=== PATIENT | female | born 1995 | race Hispanic/Latino ===

== ENCOUNTER 2016-11-26 16:12 | Emergency (ER) ==
--- NOTE | 2016-11-26 17:18 | PROVIDER DOCUMENTATION ---
HPI-Female /OB/Breast - General Source: reports: patient - History of Present Illness-Female /OB Location of complaint: reports: suprapubic Radiation: reports: none Quality of Pain: reports: cramping Severity in ED: reports: mild Onset/Duration: reports: 2 days ago Timing: reports: still present, intermittent Context/Activities at Onset: reports: light activity Vaginal Symptoms: reports: no symptoms Vaginal Bleeding Amount: None Urinary Symptoms: reports: dysuria, frequency. denies: low back pain Related Symptoms: reports: no symptoms Leakage of Fluid: none Sexual intercourse history: reports: Single Partner Contraception: reports: none Modifying Factors: improves with: nothing Associated Symptoms: denies: anxiety, back/neck pain, chest pain, cough, fatigue , fever/chills, loss of appetite, nausea, swelling/mass in abdomen, vomiting, weakness, trouble walking Similar Symptoms Previously?: Yes Recently seen or treated by another doctor?: No <Ammy Shelby - Last Filed: 11/26/16 17:53> <Kaiser Anna - Last Filed: 11/26/16 19:18> - General Chief Complaint: UTI Symptoms Stated Complaint: 2 MONTHS PREG/ABD PAIN/BLEEDING Time Seen by Provider: 11/26/16 17:09 Allergies/Adverse Reactions: Patient Allergies Allergy/AdvReac Type Severity Reaction Status Date / Time No Known Allergies Allergy Verified 04/19/16 14:35 - History of Present Illness-Female /OB Nature of Presenting Problem: Pt is 21 y/o F presents to the ED with lower abdominal pain. Pt states she is 8 weeks . Pt denies bleeding. Pt is A1. Pt states having dysuria. Pt states dysuria has been present for 2 days. (Ammy Shelby) Review of Systems - Adult - REVIEW OF SYSTEMS - ADULT Constitutional: denies: chills, fever Eyes: denies: blurred vision, double vision Ears, Nose, Mouth & Throat: denies: ear pain, nose pain, throat pain Cardiovascular: denies: chest pain, heart murmur, irregular heart rate Respiratory: denies: cough, shortness of breath, wheezing Gastrointestinal: reports: abdominal pain. denies: diarrhea, nausea, vomiting Genitourinary: reports: dysuria, frequency Musculoskeletal: denies: bone pain, joint pain, neck pain Integumentary: denies: hives, itching Neurological: denies: dizziness/vertigo, headache/migraines Psychiatric: reports: no symptoms reported Endocrine: reports: no symptoms reported Hematologic/Lymphatic: reports: no symptoms reported Allergic/Immunologic: reports: no symptoms reported All Other Systems: Reviewed and Negative <Debra Shelbyomi - Last Filed: 11/26/16 17:53> Past History - Adult - PAST MEDICAL HISTORY-ADULT Review of Records: reports: Nursing Assessment Review, Medications Reviewed, Social history reviewed & non-contributory. Major Childhood Illnesses: reports: denies history Cardiovascular: reports: denies history Respiratory: reports: denies history Gastrointestinal: reports: denies history Obstetrical/Gynecological: reports: denies history Genitourinary: reports: denies history Musculoskeletal: reports: denies history Neurological: reports: denies history Endocrine/Immune: reports: anemia Other Conditions: reports: denies history - PRIOR SURGERIES/PROCEDURES Surgical/Procedure History: reports: reviewed, not pertinent - IMMUNIZATION STATUS Childhood Immunizations: See Nurse Assessment Flu Vaccine: See Nurse Assessment - FAMILY HISTORY Family History: reviewed, not pertinent - SOCIAL HISTORY Smoking: denies Substance Use: denies Living Situation: family <Debra Shelbyomi - Last Filed: 11/26/16 17:53> Physical Exam-General - PHYSICAL EXAM-ADULT Initial Vital Signs Reviewed: Yes - CONSTITUTIONAL General Appearance: appears well, alert, no apparent distress - EYES Eyes: PERRL/EOMI, pink conjunctivae - HEAD, EARS, NOSE, MOUTH & THROAT HENMT: normocephalic/atraumatic, moist mucous membranes, normal ENT inspection - NECK Neck: non-tender, full range of motion, supple, normal inspection - RESPIRATORY Respiratory: chest non-tender, lungs clear, normal breath sounds - CARDIOVASCULAR Cardiovascular: normal peripheral pulses, regular rate, rhythm, no edema - GASTROINTESTINAL (ABDOMEN) Abdominal Exam: normal bowel sounds, soft, tenderness (suprapubic) - LYMPHATIC Lymphatic: no adenopathy - MUSCULOSKELETAL Back Exam: normal inspection, no CVA tenderness, no vertebral tenderness Extremity: normal range of motion, non-tender, normal gait - SKIN Integumentary: normal color, normal turgor, warm/dry - NEUROLOGIC Neurologic: 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 Harris Time of Transfer: 17:53 Items Pending: Labs, Ultrasound Results <Ammy Shelby - Last Filed: 11/26/16 17:53> - REASSESSMENT Reassessment #1 Time Reassessed: 18:17 Status: unchanged Reassessment Comment: Pain suprapubic and head still hurt - ULTRASOUND (By Radiology) 1 US Study: Abdomen Impression: Abnormal US Results: possible subchorionic hemorrhage - CONSULTS/PCP/HOSPITALIST Notification #1 *Consult/PCP/Hospitalist*: [place] Time Discussed: 19:14 Reason/Comments: Treatment Consult Disposition: other <Kaiser Anna - Last Filed: 11/26/16 19:18> - PLAN OF CARE/RESULTS Progress/Plan/Lab Results: Orders Category Date Time Status US OBS COMPLETE < 14 WKS [US] Stat Exams 11/26/16 17:20 Ordered BETA SUBUNIT HCG [BEGUM] Stat Lab 11/26/16 17:24 Ordered CBC WITH ELECTRONIC DIFF [HEME] Stat Lab 11/26/16 17:18 Uncollected COMPREHENSIVE METABOLIC PANEL [CHEM] Stat Lab 11/26/16 17:18 Ordered TYPE & SCREEN [BBK] Stat Lab 11/26/16 17:[address] W/POSS RFLX CULT [URINALYSIS] Stat Lab 11/26/16 17:18 Uncollected Vital Signs - 24 hr 11/26/16 16:33 Temperature 98 F Pulse Rate 72 Respiratory 18 Rate Blood Pressure 84/52 O2 Sat by Pulse 100 Oximetry (Ammy Shelby) Orders Category Date Time Status US OBS COMPLETE < 14 WKS [US] Stat Exams 11/26/16 17:20 Taken BETA SUBUNIT HCG [BEGUM] Stat Lab 11/26/16 17:48 Received CBC WITH ELECTRONIC DIFF [HEME] Stat Lab 11/26/16 17:50 Completed COMPREHENSIVE METABOLIC PANEL [CHEM] Stat Lab 11/26/16 17:48 Completed TYPE & SCREEN [BBK] Stat Lab 11/26/16 17:[address] W/POSS RFLX CULT [URINALYSIS] Stat Lab 11/26/16 16:35 Completed Vital Signs Temp Pulse Resp BP Pulse Ox 11/26/16 16:33 98 F 72 18 84/52 100 No Known Allergies Allergy (Verified 04/19/16 14:35) Laboratory 11/26/16 11/26/16 11/26/16 17:50 17:48 17:48 WBC 7.78 RBC 4.04 L Hgb 11.9 L Hct 35.3 L MCV 87.4 MCH 29.5 MCHC 33.7 RDW Std Deviation 14.3 Plt Count 263 MPV 10.4 Immature Gran % (Auto) 0.1 Neut % (Auto) 66.3 Lymph % (Auto) 25.2 Cannon % (Auto) 7.5 Eos % (Auto) 0.6 Baso % (Auto) 0.3 Immature Gran # (Auto) 0.01 Neut # (Auto) 5.16 Lymph # (Auto) 1.96 Cannon # (Auto) 0.58 Eos # (Auto) 0.05 Baso # (Auto) 0.02 Sodium 132 L Potassium 3.5 Chloride 102 Carbon Dioxide 21 L Anion Gap 9 BUN 6 L Creatinine 0.3 L Estimated GFR/1.73 m2 > 60 BUN/Creatinine Ratio 20 Glucose 89 Calculated Osmolality 262 Calcium 9.4 Total Bilirubin 0.20 AST 12 ALT 7 L Alkaline Phosphatase 53 Total Protein 7.0 Albumin 3.9 Globulin 3.0 Albumin/Globulin Ratio 1.0 Urine Source Urine Color Urine Clarity Urine pH Ur Specific [place] Urine Protein Urine Ketones Urine Blood Urine Nitrite Urine Bilirubin Urine Urobilinogen Urine Microscopic RBC Urine WBC Ur Epithelial Cells Urine Glucose Blood Type O POSITIVE Antibody Screen NEGATIVE 11/26/16 16:35 WBC RBC Hgb Hct MCV MCH MCHC RDW Std Deviation Plt Count MPV Immature Gran % (Auto) Neut % (Auto) Lymph % (Auto) Cannon % (Auto) Eos % (Auto) Baso % (Auto) Immature Gran # (Auto) Neut # (Auto) Lymph # (Auto) Cannon # (Auto) Eos # (Auto) Baso # (Auto) Sodium Potassium Chloride Carbon Dioxide Anion Gap BUN Creatinine Estimated GFR/1.73 m2 BUN/Creatinine Ratio Glucose Calculated Osmolality Calcium Total Bilirubin AST ALT Alkaline Phosphatase Total Protein Albumin Globulin Albumin/Globulin Ratio Urine Source CLEAN CATCH Urine Color YELLOW Urine Clarity CLEAR Urine pH 5.0 Ur Specific [place] 1.010 Urine Protein NEGATIVE Urine Ketones NEGATIVE Urine Blood 1+ A Urine Nitrite NEGATIVE Urine Bilirubin NEGATIVE Urine Urobilinogen NORMAL Urine Microscopic RBC <10 Urine WBC NEGATIVE Ur Epithelial Cells <10 Urine Glucose NEGATIVE Blood Type Antibody Screen (Kaiser Anna) Departure <Ammy Shelby - Last Filed: 11/26/16 17:53> - Departure Time of Disposition Order: 19:16 Certified Medical Emergency: Emergent <ShoshanaKaiser - Last Filed: 11/26/16 19:18> - Departure DIAGNOSIS: Intrauterine Subchorionic bleed Qualifiers: Fetus number: single or unspecified fetus Trimester: unspecified trimester Qualified Code(s): O41.8X90 - Other specified disorders of amniotic fluid and membranes, unspecified trimester, not applicable or unspecified Disposition: HOME 01 Condition: Stable Additional Instructions: Follow up with OB Dr Talley ED Follow Up Instructions: You have been treated by a care provider in the Emergency Department. These instructions are being provided to you so you can have an understanding of how to care for yourself upon discharge. Upon discharge from the Emergency Department, you are responsible for making arrangements for follow-up care by a physician of your choice. Take all prescribed medications as directed. Return to the Emergency Department immediately for any new or worsening symptoms. You may call the Physician Referral phone number at [phone] to obtain a list of Physicians who are taking new patients. Referrals: None,PCP [Primary Care Provider] - Yang Talley MD [STAFF PHYSICIAN] - Attestation - Scribe Verification/Attestation Scribe:: Ammy Shelby Acting as Scribe for:: Bora Muse Scribe documention review:: This chart was documented by a scribe and accurately reflects the service the provider performed and the decisions made by the provider. - Scribe Verification/Attestation #2 Shift Change Time: 17:54 Scribe Name: Kaiser Anna Acting as Scribe for:: Nilay Harris <Ammy Shelby - Last Filed: 11/26/16 17:53> - Scribe Verification/Attestation Scribe:: Kaiser Anna Acting as Scribe for:: Nilay Harris Scribe documention review:: This chart was documented by a scribe and accurately reflects the service the provider performed and the decisions made by the provider. <Kaiser Anna - Last Filed: 11/26/16 19:18> Physician Attestation
[2016-11-26 18:20] LABS: AGAP 9; ALBUMIN 3.9 g/dL (3.5-5.0); ALKALINE PHOSPHATASE 53 U/L (32-104); BUN 6 mg/dL (8-22); CALCIUM 9.4 mg/dL (8.8-10.2); CHLORIDE 102 mmol/L (98-107); COSMO 262; GOT 12 U/L (10-30); GPT 7 U/L (10-36); POTASSIUM 3.5 mmol/L (3.5-5.1); SODIUM 132 mmol/L (136-145); TCO2 21 mmol/L (25-35)
[2016-11-26 18:28] LABS: MANUAL DIFF NEEDED? NO
[2016-11-26 18:28] LABS: URINE CULTURE PL NEEDED? NO; URINE SOURCE CLEAN CATCH
[2016-11-26 18:43] LABS: BASO% 0.3 % (0.0-0.8); EOS# 0.05 X1000 (0.0-0.7); EOS% 0.6 % (0.0-10.0); HEMATOCRIT 35.3 % (37.0-47.0); HEMOGLOBIN 11.9 g/dL (12.0-16.0); IMM GRAN# 0.01 X1000 (0.0-0.04); IMM GRAN% 0.1 % (0.0-0.5); LYMPH# 1.96 X1000 (1.2-3.4); LYMPH% 25.2 % (20.5-51.1); MCH 29.5 PG (27-31); MCHC 33.7 g/dL (33-37); MCV 87.4 FL (81-99); MONO# 0.58 X1000 (0.11-0.59); MONO% 7.5 % (1.7-9.3); MPV 10.4 FL (7.4-10.4); NEUT% 66.3 % (42.2-75.2); PLT 263 X1000 (130-400); RBC 4.04 XMIL (4.2-5.4)
[2016-11-26 18:56] LABS: BILIRUBIN URINE NEGATIVE (NEGATIVE); BLOOD URINE 1+ (NEGATIVE); CLARITY CLEAR (CLEAR); COLOR YELLOW; GLUCOSE URINE NEGATIVE (NEGATIVE); LEUKOCYTES URINE NEGATIVE (NEGATIVE); NITRITE URINE NEGATIVE (NEGATIVE); PROTEIN URINE NEGATIVE (NEGATIVE); UROBILINOGEN URINE NORMAL
[2016-11-26 18:57] LABS: URINE EPITHELIAL CELLS <10 /HPF (<10); URINE RBC <10 /HPF (<10)
[2016-11-26 19:27] VITALS: BP 93/57
--- NOTE | 2016-11-26 22:17 | Diag Imaging Result Document ---
PROCEDURE NAME: US OBS COMPLETE < 14 WKS - 11/26/2016 OB ULTRASOUND: There is an intrauterine with an estimated gestational age of 13 weeks and 2 days plus or minus 8 days. This corresponds with an estimated date of delivery of 06/01/2017. heart rate is present, 163 beats per minute. No focal abnormality is identified. The cervix is closed. Possible subchorionic hemorrhage measuring 1.0 x 1.1 x 3.6 cm on the left. IMPRESSION: 1. Intrauterine with estimated gestational age of 13 weeks 2 days. 2. Possible small subchorionic hemorrhage. A preliminary report was given at 6:45 p.m.
== END 2016-11-26 19:31 | disposition home or self-care (01) ==
LOC: P.ED 16:12
DX: O46.8X1 Other antepartum hemorrhage, first trimester (principal); O26.891 Other specified pregnancy related conditions, first trimester; R10.30 Lower abdominal pain, unspecified; R30.0 Dysuria; R35.0 Frequency of micturition; R10.819 Abdominal tenderness, unspecified site; R51 Headache; Z3A.13 13 weeks gestation of pregnancy
CPT/HCPCS: 76801; 80053; 81001; 84702; 85025; 86850; 86900; 86901

== ENCOUNTER 2017-06-10 09:52 | Inpatient (IN) ==
[2017-06-10] MEDS ORDERED: PEPCID IV PRN (11:12)
[2017-06-10] MEDS ORDERED: LR 500 ML IV ONE (11:12)
[2017-06-10] MEDS ORDERED: PITOCIN 30 UNITS/LR 30 UNITS/500 ML IV.SOLN IV SCH (11:12)
[2017-06-10] MEDS ORDERED: PEPCID PO PRN (11:12)
[2017-06-10] MEDS ORDERED: PEPCID PO ONE (11:12)
[2017-06-10] MEDS ORDERED: LR 1,000 ML IV SCH (11:12)
[2017-06-10] MEDS ORDERED: REGLAN PO ONE (11:12)
[2017-06-10] MEDS ORDERED: ZOFRAN IV PRN (11:12)
[2017-06-10] MEDS ORDERED: TYLENOL PO PRN (11:12)
[2017-06-10] MEDS ORDERED: KEFZOL 1 GM/D5W 1 GM/50 ML IVPB IV PRN (11:12)
[2017-06-10] MEDS ORDERED: STADOL IV PRN (11:12)
[2017-06-10] MEDS ORDERED: SODIUM CHLORIDE 0.9% INJ SCH (11:15)
[2017-06-10] MEDS ORDERED: FENTANYL-BUPIV-NS 2 MCG-0.1% 200 ML EPIDURAL PRN (12:05)
[2017-06-10 12:16] LABS: URINE SOURCE VOIDED
[2017-06-10 12:21] LABS: BILIRUBIN URINE NEGATIVE (NEGATIVE); BLOOD URINE 1+ (NEGATIVE); CLARITY CLEAR (CLEAR); COLOR YELLOW; GLUCOSE URINE NEGATIVE (NEGATIVE); LEUKOCYTES URINE TRACE (NEGATIVE); NITRITE URINE NEGATIVE (NEGATIVE); PROTEIN URINE NEGATIVE (NEGATIVE); SP GRAVITY URINE 1.015; UROBILINOGEN URINE NORMAL
[2017-06-10 12:24] LABS: UR AMPHETAMINES QUAL NONE DETECTED (NONE DETECT); UR BARBITUATES QUAL NONE DETECTED (NONE DETECT); UR BENZODIAZEPIN QUAL NONE DETECTED (NONE DETECT); UR CANNABINOIDS QUAL NONE DETECTED (NONE DETECT); UR COCAINE QUAL NONE DETECTED (NONE DETECT); UR MDMA QUAL NONE DETECTED (NONE DETECT); UR METHADONE QUAL NONE DETECTED (NONE DETECT); UR METHAMPHETAMINE QUAL NONE DETECTED (NONE DETECT); UR OPIATES QUAL NONE DETECTED (NONE DETECT); UR OXYCODONE QUAL NONE DETECTED (NONE DETECT); UR PCP QUAL NONE DETECTED (NONE DETECT); UR TCA QUAL NONE DETECTED (NONE DETECT)
[2017-06-10] MEDS ORDERED: MINERAL OIL ONE (12:28)
[2017-06-10] MEDS ORDERED: XYLOCAINE-MPF 1% INJ ONE (12:28)
[2017-06-10 12:40] LABS: MANUAL DIFF NEEDED? NO
[2017-06-10 12:44] LABS: BASO% 0.2 % (0.0-0.8); EOS# 0.03 X1000 (0.0-0.7); EOS% 0.3 % (0.0-10.0); HEMATOCRIT 28.6 % (37.0-47.0); HEMOGLOBIN 8.6 g/dL (12.0-16.0); IMM GRAN# 0.05 X1000 (0.0-0.04); IMM GRAN% 0.5 % (0.0-0.5); LYMPH# 1.76 X1000 (1.2-3.4); LYMPH% 16.4 % (20.5-51.1); MCH 22.8 PG (27-31); MCHC 30.1 g/dL (33-37); MCV 75.9 FL (81-99); MONO% 7.4 % (1.7-9.3); MPV 9.8 FL (7.4-10.4); NEUT% 75.2 % (42.2-75.2); PLT 315 X1000 (130-400); RBC 3.77 XMIL (4.2-5.4)
[2017-06-10] MEDS ORDERED: PITOCIN 30 UNITS/LR 30 UNITS/500 ML IV.SOLN IV ONE (14:59)
[2017-06-10] MEDS ORDERED: BENADRYL IV PRN (14:59)
[2017-06-10] MEDS ORDERED: PITOCIN 20 UNITS/LR 20 UNITS/1,000 ML IV.SOLN IV SCH (14:59)
[2017-06-10] MEDS ORDERED: MINERAL OIL PO PRN (14:59)
[2017-06-10] MEDS ORDERED: HYDROXYZINE PO PRN (14:59)
[2017-06-10] MEDS ORDERED: PITOCIN IM PRN (14:59)
[2017-06-10] MEDS ORDERED: PERCOCET-10 PO PRN (14:59)
[2017-06-10] MEDS ORDERED: BENADRYL PO PRN (14:59)
[2017-06-10] MEDS ORDERED: PERI MEDS (DERMOPLAST/NUPERCAINAL/TUCKS) MISC PRN (14:59)
[2017-06-10] MEDS ORDERED: XYLOCAINE-MPF 1% INJ PRN (14:59)
[2017-06-10] MEDS ORDERED: CYTOTEC PO PRN (14:59)
[2017-06-10] MEDS ORDERED: M-M-R II VACCINE SUBQ ONE (14:59)
[2017-06-10] MEDS ORDERED: AMBIEN PO PRN (14:59)
[2017-06-10] MEDS ORDERED: HYDROXYZINE IM PRN (14:59)
[2017-06-10] MEDS ORDERED: BOOSTRIX VACCINE IM ONE (14:59)
[2017-06-10] MEDS: MOTRIN PO PRN (15:30)
[2017-06-10] MEDS: PERCOCET-5 PO PRN (20:58)
[2017-06-10] MEDS: PERICOLACE PO SCH (20:59)
[2017-06-11] MEDS: PERCOCET-5 PO PRN (04:40)
[2017-06-11] MEDS: MOTRIN PO PRN (04:41)
[2017-06-11 06:50] LABS: HEMATOCRIT 28.2 % (37.0-47.0); HEMOGLOBIN 8.4 g/dL (12.0-16.0); MCH 22.8 PG (27-31); MCHC 29.8 g/dL (33-37); MCV 76.4 FL (81-99); MPV 10.1 FL (7.4-10.4); RBC 3.69 XMIL (4.2-5.4)
--- NOTE | 2017-06-11 13:06 | PROGRESS NOTE ---
DATE: 06/11/2017 SUBJECTIVE: She is day 1. She is without complaints. She is ready to get up and eat a regular diet. OBJECTIVE: Vital Signs: Her vital signs: Temp 97.9 degrees, blood pressure 90/44. She has had Motrin for pain. Neck: Supple. Lungs: Clear. Heart: Regular sinus rhythm. Abdomen: Distended. Uterus is firm, nontender. Extremities: No cyanosis, clubbing, edema in her extremities. LABS: Hemoglobin and hematocrit 8.4/28.2. PLAN: Continue routine . cc: MD Yang Pyle MD
[2017-06-11] MEDS: PERICOLACE PO SCH (20:51)
[2017-06-12 11:49] VITALS: BP 104/64
== END 2017-06-12 17:00 | disposition home or self-care (01) ==
LOC: P.OPLD 09:52 → P.LD 09:53 → P.WC 17:36
PROVIDERS: ADMIT Obstetrics & Gynecology; ATTEND Obstetrics & Gynecology